=== PATIENT | male | born 1990 | race Caucasian/White ===

== ENCOUNTER 2020-12-20 11:58 | Emergency (ER) | payer SELFPAY ==
[2020-12-20 12:07] VITALS: BP 146/90; PULSE 82; RESP 20; TEMP 37.1; O2SAT 100
[2020-12-20 12:14] VITALS: BP 146/90; PULSE 82; RESP 20; TEMP 37.1; O2SAT 100
--- NOTE | 2020-12-20 12:28 | ED.MALEGU ---
HPI - Male Genitourinary General Chief complaint: Urogenital-Male Stated complaint: FLANK PAIN Time Seen by Provider: 12/20/20 12:28 Source: patient and RN notes reviewed Mode of arrival: ambulatory Limitations: no limitations History of Present Illness HPI Narrative: 30-year-old male presents to the emergency room with complaints of low back pain. Patient states that last Saturday, 8 days ago he went to use the restroom when he got up in the morning and started having low back pain, states the pain was so bad I felt lightheaded and almost passed out. States he went back to bed and had a repeat of that Saturday afternoon when he woke up. Did not seek medical attention at that time. Patient states that he woke up this morning with bilateral lower back pain. No blood in his urine. No groin pain. No abdominal pain. No nausea vomiting or diarrhea. Related Data Allergies Allergy/AdvReac Type Severity Reaction Status Date / Time Penicillins Allergy Intermediate Unverified 11/24/14 16:43 Review of Systems Review of Systems: All systems reviewed & are unremarkable except as noted in HPI and below Constitutional: Constitutional: Reports no additional constitutional complaints, Denies body ache(s), Denies chills and Denies fever(s) Eyes: Eyes: Reports no additional eye complaints ENT: Reports system reviewed and no additional complaints, except as documented Cardiovascular: Cardiovascular: Reports no additional cardiovascular complaints and Denies chest pain Respiratory: Respiratory: Reports no additional respiratory complaints, Reports no additional respiratory complaints, Denies cough, Denies pain on inspiration, Denies pain with cough, Denies dyspnea and Denies wheezing Gastrointestinal: Gastrointestinal: Reports no additional gastrointestinal complaints, Denies abdominal pain and Denies dyspepsia Genitourinary: Genitourinary: Reports no additional male genitourinary complaints, Denies urinary frequency, Denies urinary incontinence and Denies urinary urgency Musculoskeletal: Musculoskeletal: Reports as per HPI, Reports back pain (Lumbar bilateral) and Denies joint swelling Integumentary/Breasts: Skin/Breast: Reports system reviewed and no additional complaints, except as docu Neurologic: Reports system reviewed and no additional complaints, except as documented Psychiatric: Psychiatric: Reports anxiety PMFSH Social History Social History Gender identity (if verbalized by the patient): Male Comments At the time of my signature, I reviewed and agree with the nursing past medical, surgical, social, and family history. There is no relevant family history pertinent to the patient complaint. Exam Const: General: cooperative, healthy appearing, no acute distress, well developed, alert, awake and anxious Nutritional Appearance: obese morbidly obese Orientation/consciousness: patient oriented x3 Limitations: no limitations HENMT: Head: normal to inspection Ears: hearing grossly normal bilaterally General nose exam: Normal external nose present Eyes: General: appearance normal, both eyes and all related structures Neck: Neck: normal visual inspection, full ROM, no lymphadenopathy, no meningeal signs, trachea midline and supple Chest: Chest palpation & inspection: normal inspection of the chest Resp: Effort & Inspection: normal respiratory effort, able to speak in complete sentences and no cough Auscultation: clear to auscultation bilaterally Cardio: Rate: regular rate Rhythm: regular rhythm GI: Inspection: normal to inspection and obesity GI Palp: No abdominal tenderness Back/Spine/Pelvis: Back: no CVA tenderness, No erythema and No back tenderness Cervical Spine: normal cervical lordosis and cervical ROM normal Thoracic/Lumbar Spine: thoracic and lumbar spine normal to inspection and thoraco-lumbar ROM normal Pelvis: no pain with anterior-posterior compression, no pain with late
== END 2020-12-20 12:56 | disposition home or self-care (01) ==
PROVIDERS: Emergency Provider Nurse Practitioner
DX: S39.012A Strain of muscle, fascia and tendon of lower back, initial encounter (principal); X58.XXXA Exposure to other specified factors, initial encounter
CPT/HCPCS: 81003; 99203; G0463

== ENCOUNTER 2020-12-21 11:26 | Emergency (ER) | payer BC, SELFPAY ==
--- NOTE | ~2020-12-21 | CT_ITS ---
EXAMINATION: CT abdomen pelvis wo con DATE: 12/21/2020 17:50 INDICATION: Bilateral flank pain TECHNIQUE: Computed tomography (CT) of the abdomen and pelvis was performed without intravenous contr ast. The dose-length product was 659.86 mGy-cm. Automated exposure control and iterative reconstructi on technique were employed. COMPARISON: None. FINDINGS: Lung bases are unremarkable. Heart size is normal. No significant pleural or pericardial ef fusion. No significant vascular abnormality. There are mildly increased number and size of ileocolic lymph nodes. Small fat-containing umbilical hernia. Nonobstructive bowel gas pattern. Moderate fecal loading of the rectum. The liver, spleen, pancreas, adrenal glands and kidneys are unremarkable. Gallbladder is present. Nor mal appendix. No free air or free fluid. No significant bone or joint abnormality. Mild lumbar spondy losis. No renal/ureteral stones or hydronephrosis. IMPRESSION: 1. No findings to account for patient's symptoms. 2: Mild ileocolic lymphadenopathy, likely reactive. Reviewed, dictated and finalized at location A.
[2020-12-21 11:45] VITALS: BP 139/91; PULSE 64; RESP 18; TEMP 36.3; O2SAT 100
[2020-12-21 12:04] LABS: Basophils Percent Auto 0.4 % (0.2-1.2); Eosinophils Absolute Auto 0.2 K/mm3 (0-0.3); Eosinophils Percent Auto 2.2 % (0-4.4); Hematocrit 49.1 % (42.0-52.0); Hemoglobin 16.2 g/dL (14.0-18.0); Immature Granulocyte Absolute 0.02 K/mm3 (0.00-0.031); Immature Granulocyte Percent A 0.3 % (0-0.5); Lymphocytes Absolute Auto 2.38 K/mm3 (0.9-3.2); Lymphocytes Percent Auto 34.6 % (18.3-44.2); Mean Corpuscular Hemoglobin 29.4 pg (26-34); Mean Corpuscular Volume 89.1 fl (80-100); Mean Platelet Volume 9.8 fl (7.4-10.4); Monocytes Absolute Auto 0.5 K/mm3 (0.1-0.6); Monocytes Percent Auto 7.6 % (2.6-8.5); Neutrophils Absolute Auto 3.8 K/mm3 (1.3-6.7); Neutrophils Percent Auto 54.9 % (45.5-73.1); Platelet Count Result 250 k/mm3 (150-375); Red Blood Count 5.51 M/mm3 (4.6-6.20); Red Cell Distribution Width 13.1 % (11.5-14.5); White Blood Count 6.9 K/mm3 (4.5-10.0)
[2020-12-21 12:13] LABS: Anion Gap 7 mmol/L (8-16); Blood Urea Nitrogen 12 mg/dL (9-20); Calcium 9.6 mg/dL (8.4-10.2); Carbon Dioxide 30 mmol/L (22-30); Chloride 102 mmol/L (98-107); Estimated CRCL calculation 147 ml/min; Estimated Glomerular Filt Rate > 60; Glucose 118 mg/dL (75-110); Potassium 4.1 mmol/L (3.4-5.0); Sodium 139 mmol/L (137-145)
[2020-12-21 12:33] LABS: Add Urine Microscopic? YES; Appearance Urine Clear (Clear); Bilirubin Urine Negative (Negative); Blood Urine Negative (Negative); Color Urine Yellow (Yellow); Glucose Urine UA Negative (Negative); Ketones Urine Negative (Negative); Leukocyte Esterase Ur Negative LEU/UL (Negative); Mucus Urine Heavy /lpf; Nitrate Urine Negative (Negative); Protein Urine 1+ mg/dL (Negative); Specific Grav Ur 1.025 (1.001-1.035); Squamous Epithelial Cell Urine Rare /hpf (Few); Urobilinogen Urine Negative mg/dL (<2.0); WBC Urine 0-3 /hpf
[2020-12-21 18:00] VITALS: BP 140/99; PULSE 73; RESP 16; O2SAT 100
--- NOTE | 2020-12-21 18:19 | ED.ABDPAIN ---
HPI - Abdominal Pain General Chief Complaint: Abdominal Pain Stated Complaint: lower back pain Time Seen by Provider: 12/21/20 16:58 Source: patient Mode of arrival: ambulatory Limitations: no limitations History of Present Illness HPI narrative: 30-year-old male Because he thinks he might have a kidney stone Patient indicates that he has been having pain intermittently for at least a week First began about 8 days ago however seem to be more bilateral than unilateral and more abdominal than back or flank He missed the day of work and symptoms started getting better Couple of days ago the symptoms again worsened and yesterday he was seen at an urgent care He had a clean urinalysis which made kidney stones less likely and was given prescriptions for a muscle relaxer and NSAID which he does not think is helping very much He does not have any pain radiating from his back into his legs to suggest sciatica He has nausea but no vomiting and no diarrhea and no fever He has no dysuria or hematuria Related Data Allergies Allergy/AdvReac Type Severity Reaction Status Date / Time Penicillins Allergy Intermediate Unverified 11/24/14 16:43 Review of Systems Review of Systems: All systems reviewed & are unremarkable except as noted in HPI and below Constitutional: Constitutional: Reports no additional constitutional complaints, Denies chills, Reports fatigue, Denies fever(s) and Denies headache(s) Eyes: Eyes: Reports no additional eye complaints and Denies change in vision ENT: Denies headache(s) and Denies sore throat Cardiovascular: Cardiovascular: Denies chest pain and Denies dyspnea Respiratory: Respiratory: Denies cough and Denies dyspnea Gastrointestinal: Gastrointestinal: Reports abdominal pain, Denies bloating, Denies diarrhea and Denies vomiting Genitourinary: Genitourinary: Denies hematuria, Denies dysuria and Denies urinary frequency Musculoskeletal: Musculoskeletal: Reports back pain, Reports myalgias, Denies deformity, Denies arthralgias, Denies joint swelling and Denies numbness Integumentary/Breasts: Skin/Breast: Denies rash and Denies wounds Neurologic: Denies headache(s), Denies focal weakness, Denies numbness and Reports weakness Psychiatric: Psychiatric: Reports no additional psychiatric complaints Endocrine: Endocrine: Reports no additional endocrine complaints Hematologic/Lymphatic: Hematologic/Lymphatic: Reports no additional hematologic/lymphatic complaints Allergic/Immunologic: Allergic/Immunologic: Reports no additional allergic/immunologic complaints [facility] Social History Social History Gender identity (if verbalized by the patient): Male Exam Const: General: cooperative, no acute distress and alert Orientation/consciousness: patient oriented x3 (alert) Other: Overweight HENMT: Head: normal to inspection, normocephalic and atraumatic Ears: external ears normal General nose exam: no epistaxis Eyes: Conjunctivae: conjunctivae normal EOM: EOMs intact bilaterally Neck: Neck: normal visual inspection, supple and no JVD Resp: Effort & Inspection: normal respiratory effort and not labored Auscultation: clear to auscultation bilaterally and other (BS =) Cardio: Rate: regular rate Rhythm: regular rhythm GI: Inspection: non-distended GI Palp: Yes Soft to palpation, Yes Tenderness to palpation present (GI), No Guarding due to palpation present (GI) and No Rebound tenderness present Other: There is very minimal poorly localized tenderness in the right lower abdomen with very firm palpation no referred tenderness : General: Yes no CVA tenderness Back/Spine/Pelvis: Other: No midline spinal tenderness, no paraspinous tenderness, negative straight leg raise to nearly 90 degrees bilaterally, no SI tenderness, full range of motion in all directions Skin: General skin exam: normal color and no rashes or lesions noted Neuro: General: patient oriented x3 (alert) and moves all extremi
[2020-12-21 19:20] LABS: Lipase 74 U/L (23-300)
[2020-12-21 20:08] VITALS: BP 140/77; PULSE 86; RESP 20; O2SAT 100
== END 2020-12-21 20:11 | disposition home or self-care (01) ==
PROVIDERS: Emergency Medicine; Emergency Provider Emergency Medicine
DX: R10.9 Unspecified abdominal pain (principal)
CPT/HCPCS: 36415; 74176; 80048; 81001; 83690; 85025; 99284

== ENCOUNTER 2020-12-27 16:14 | Emergency (ER) | payer BC, SELFPAY ==
[2020-12-27 16:17] VITALS: BP 157/98; PULSE 80; RESP 18; TEMP 36.6; O2SAT 100
[2020-12-27 16:57] LABS: Add Urine Microscopic? YES; Appearance Urine Cloudy (Clear); Bilirubin Urine Negative (Negative); Blood Urine Negative (Negative); Color Urine Yellow (Yellow); Glucose Urine UA Negative (Negative); Ketones Urine Negative (Negative); Leukocyte Esterase Ur Negative LEU/UL (Negative); Mucus Urine Heavy /lpf; Nitrate Urine Negative (Negative); Protein Urine 1+ mg/dL (Negative); RBC Urine 0-2 /hpf (0-2); Specific Grav Ur 1.026 (1.001-1.035); Squamous Epithelial Cell Urine Rare /hpf (Few); Urobilinogen Urine Negative mg/dL (<2.0); WBC Urine 0-3 /hpf
--- NOTE | 2020-12-27 17:04 | ED.GENADULT ---
HPI - General Adult General Chief complaint: Psychiatric Symptoms Stated complaint: psychiatric eval Time Seen by Provider: 12/27/20 16:29 Source: patient and RN notes reviewed Mode of arrival: ambulatory Limitations: no limitations History of Present Illness HPI narrative: Patient a 30-year-old male who presents to emergency department for evaluation of depression with passive thoughts of harming himself patient notes he has chronically been depressed and was following up with a new primary care doctor after recent ER visit for abdominal pain and during filling out the paperwork he had noted that he had had depression and thoughts of harming himself was referred to emergency department presented per private vehicle in no distress for evaluation of the symptoms patient denies any plan to harm himself or homicidal ideation and on arrival is otherwise in no distress Related Data Allergies Allergy/AdvReac Type Severity Reaction Status Date / Time Penicillins Allergy Intermediate Unknown Verified 12/27/20 17:04 Review of Systems Review of Systems: All systems reviewed & are unremarkable except as noted in HPI and below PMFSH Past Medical History Medical History (Updated 12/27/20 @ 20:31 by Raz Nails PA-C) Depression Social History Social History Substance use type: does not use Gender identity (if verbalized by the patient): Male Exam Narrative: Exam Narrative: GENERAL: Well-appearing, well-nourished, and in no acute distress. HEAD: Normocephalic, atraumatic. EYES: PERRLA and EOMI. ENT: Nares clear, no rhinorrhea or epistaxis. Mucous membranes moist. CHEST: Clear to auscultation. No respiratory distress. No wheezes rales or rhonchi HEART: Regular rate and rhythm. No murmur heard. EXTREMITIES: Normal range of motion. No edema. SKIN: Warm, dry, no rash. NEURO: No focal deficits. Alert and oriented x3. Cranial nerves II through XII grossly intact PSYCH: Normal mood and affect. Course Course Emergency Course: Patient evaluated by myself and crisis he has been given resources and felt appropriate for outpatient treatment currently is in a day program with [facility]. Patient agrees with this plan will be discharged home no high risk changes in the evaluation ABCs vital signs intact and stable Vital Signs Vital signs: Vital Signs Temperature 97.8 F 12/27/20 16:17 Pulse Rate 80 12/27/20 16:17 Respiratory Rate 18 12/27/20 16:17 Blood Pressure 157/98 H 12/27/20 16:17 Pulse Oximetry 100 12/27/20 16:17 Temperature 97.8 F 12/27/20 16:17 Pulse Rate 80 12/27/20 16:17 Respiratory Rate 18 12/27/20 16:17 Blood Pressure 157/98 H 12/27/20 16:17 Pulse Oximetry 100 12/27/20 16:17 Medical Decision Making MDM Narrative Medical decision making narrative: Patient presented for evaluation of depression felt appropriate for outpatient reevaluation will be discharged home with plan follow-up on an outpatient basis evaluated by myself and crisis and felt appropriate for outpatient therapy patient agrees with this plan Vital Signs Vital Signs: Vital Signs Temperature 97.8 F 12/27/20 16:17 Pulse Rate 80 12/27/20 16:17 Respiratory Rate 18 12/27/20 16:17 Blood Pressure 157/98 H 12/27/20 16:17 Pulse Oximetry 100 12/27/20 16:17 Temperature 97.8 F 12/27/20 16:17 Pulse Rate 80 12/27/20 16:17 Respiratory Rate 18 12/27/20 16:17 Blood Pressure 157/98 H 12/27/20 16:17 Pulse Oximetry 100 12/27/20 16:17 Lab Data Result diagrams: 12/27/20 17:03 12/27/20 17:03 Labs: Lab Results 12/27/20 12/27/20 12/27/20 Range/Units 16:44 16:44 17:03 WBC 8.3 (4.5-10.0) K/mm3 RBC 5.55 (4.6-6.20) M/mm3 Hgb 16.2 (14.0-18.0) g/dL Hct 48.5 (42.0-52.0) % MCV 87.4 (80-100) fl MCH 29.2 (26-34) pg MCHC 33.4 (32-36) g/dl RDW 13.1 (11.5-14.5) % Plt Count 30
[2020-12-27 17:07] LABS: Amphetamine Screen Urine Negative (Negative); Barbiturate Screen Urine Negative (Negative); Benzodiazepines Screen Urine Negative (Negative); Cannabinoid Screen Urine Negative (Negative); Cocaine Screen Urine Negative (Negative); Methadone Screen Urine Negative (Negative); Opiate Screen Urine Negative (Negative); Phencyclidine Screen Urine Negative (Negative)
[2020-12-27 17:11] LABS: Basophils Percent Auto 0.5 % (0.2-1.2); Eosinophils Absolute Auto 0.1 K/mm3 (0-0.3); Eosinophils Percent Auto 1.1 % (0-4.4); Hematocrit 48.5 % (42.0-52.0); Hemoglobin 16.2 g/dL (14.0-18.0); Immature Granulocyte Absolute 0.06 K/mm3 (0.00-0.031); Immature Granulocyte Percent A 0.7 % (0-0.5); Lymphocytes Absolute Auto 2.71 K/mm3 (0.9-3.2); Lymphocytes Percent Auto 32.7 % (18.3-44.2); Mean Corpuscular HGB Conc 33.4 g/dl (32-36); Mean Corpuscular Hemoglobin 29.2 pg (26-34); Mean Corpuscular Volume 87.4 fl (80-100); Mean Platelet Volume 9.7 fl (7.4-10.4); Monocytes Absolute Auto 0.6 K/mm3 (0.1-0.6); Monocytes Percent Auto 7.7 % (2.6-8.5); Neutrophils Absolute Auto 4.7 K/mm3 (1.3-6.7); Neutrophils Percent Auto 57.3 % (45.5-73.1); Platelet Count Result 306 k/mm3 (150-375); Red Blood Count 5.55 M/mm3 (4.6-6.20); Red Cell Distribution Width 13.1 % (11.5-14.5); White Blood Count 8.3 K/mm3 (4.5-10.0)
[2020-12-27 17:23] LABS: Alanine Aminotransferase 31 U/L (4-50); Albumin Level 4.4 g/dL (3.5-5.1); Alkaline Phosphatase 77 U/L (38-126); Anion Gap 9 mmol/L (8-16); Aspartate Amino Transferase 34 U/L (17-59); Bilirubin,Total 0.3 mg/dL (0.2-1.3); Blood Urea Nitrogen 15 mg/dL (9-20); Calcium 9.9 mg/dL (8.4-10.2); Carbon Dioxide 29 mmol/L (22-30); Chloride 102 mmol/L (98-107); Estimated CRCL calculation 148 ml/min; Estimated Glomerular Filt Rate > 60; Glucose 93 mg/dL (75-110); Potassium 4.5 mmol/L (3.4-5.0); Sodium 140 mmol/L (137-145)
[2020-12-27 17:25] LABS: Ethanol < 10 mg/dL (<10)
--- NOTE | 2020-12-27 20:00 | PC.NURSE ---
EDP notified of pt low O2 saturation. Pt placed on 2L NC at this time.
[2020-12-27 21:39] VITALS: BP 124/91; PULSE 73; RESP 18; TEMP 36.6; O2SAT 100
== END 2020-12-27 21:40 | disposition home or self-care (01) ==
PROVIDERS: Emergency Provider Emergency Medicine; PCP Emergency Medicine
DX: F32.9 Major depressive disorder, single episode, unspecified (principal)
CPT/HCPCS: 36415; 80053; 80307; 81001; 84443; 85025; 99284

== ENCOUNTER 2021-12-12 11:36 | Emergency (ER) | payer SELFPAY ==
[2021-12-12 11:41] VITALS: BP 128/94; PULSE 71; RESP 16; TEMP 36.1; O2SAT 100
[2021-12-12 11:45] VITALS: BP 128/94; PULSE 71; RESP 16; TEMP 36.1; O2SAT 100
--- NOTE | 2021-12-12 11:45 | ED.GENADULT ---
HPI - General Adult General Chief complaint: Unspecified Stated complaint: LIGHT HEADED Time Seen by Provider: 12/12/21 11:45 Source: patient and RN notes reviewed History of Present Illness HPI narrative: Patient is a 31-year-old male who presents the urgent care with complaints of lightheadedness. Patient states that he felt like he was going to pass out at work and they called the ambulance. Patient states the EMT it did a EKG and blood sugar level which was both normal. Patient denies of any nausea, vomiting or lightheadedness at this time. Patient states he needs to be released back to work . Patient states that he did not get enough sleep last night, drink an energy drink, and went to work on an empty stomach. 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 No other acute complaints. No stress noted. Patient the plan of care. Some parts of this dictation were generated by voice recognition software and may contain typographical and/or grammatical inaccuracies. Related Data Home Medications Medication Instructions Recorded Confirmed hydroxyzine pamoate 12/12/21 sertraline mg 12/12/21 Allergies Allergy/AdvReac Type Severity Reaction Status Date / Time Penicillins Allergy Intermediate Unknown Verified 12/27/20 17:04 Review of Systems Review of Systems: CONSTITUTIONAL: Denies fever, chills, or sweats. EYES: Denies visual changes, redness, or discharge. ENT: Denies rhinorrhea, congestion, sore throat, or otalgia. CARDIOVASCULAR: Denies chest pain, palpitations, or edema. RESPIRATORY: Denies cough or dyspnea. GASTROINTESTINAL: Denies abdominal pain, nausea, vomiting, or diarrhea. GENITOURINARY: Denies dysuria or hematuria. SKIN: Denies rash or itching. MUSCULOSKELETAL: Denies back pain, joint pain, or myalgia. NEUROLOGIC: Denies headache, numbness, or weakness. All other systems reviewed are negative, except as documented in HPI. [facility] Past Medical History Medical History (Updated 12/12/21 @ 11:48 by EDWIGE Broussard) Depression Social History Social History Substance use type: does not use Gender identity (if verbalized by the patient): Male Comments At the time of my signature, I reviewed and agree with the nursing past medical, surgical, social, and family history. There is no relevant family history pertinent to the patient complaint. Exam Narrative: GENERAL: This is a well-nourished, well-developed patient, in no apparent distress. HEAD: normocephalic, atraumatic. EYES: PERRL. Sclera clear/white. Vision is grossly intact. EARS: External ears normal, auditory canals clear and without drainage, TMs normal without perforation. Hearing grossly intact. NOSE: External nose normal with no obvious nasal discharge, nares without redness, no rhinorrhea. THROAT: Mucous membranes moist, posterior pharynx clear. NECK: Neck supple, non-tender without lymphadenopathy, masses or thyromegaly. CARDIOVASCULAR: Regular rate and rhythm without murmurs, gallops, or rubs. RESPIRATORY: Clear to auscultation. Breath sounds equal bilaterally. No wheezes, rales, or rhonchi. SKIN: warm, intact with no suspicious lesions or rash, good texture and turgor. NEURO: awake, alert, and oriented to person, place and time. There were no obvious focal neurologic abnormalities. EXTREMITIES: No clubbing, cyanosis, or edema. Course Course Level of Care: Express Care Visit Vital Signs Vital signs: Vital Signs Temperature 96.9 F L 12/12/21 11:41 Pulse Rate 71 12/12/21 11:41 Respiratory Rate 16 12/12/21 11:41 Blood Pressure 128/94 H 12/12/21 11:41 Pulse Oximetry 100 12/12/21 11:41 Temperature 96.9 F L 12/12/21 11:45 Pulse Rate 71 12/12/21 11:45 Respiratory Rate 16 12/12/21 11:45 Blood Pressure 128/94 H 12/12/21 11:45 Pulse Oximetry 100 12/12/21 11:45 Reviewed-mine
== END 2021-12-12 11:56 | disposition home or self-care (01) ==
PROVIDERS: Emergency Provider Nurse Practitioner Family
DX: R42 Dizziness and giddiness (principal); F32.A Depression, unspecified
CPT/HCPCS: 99211; G0463

== ENCOUNTER 2022-07-18 06:51 | Emergency (ER) | payer SELFPAY ==
--- NOTE | ~2022-07-18 | XR_ITS ---
EXAMINATION: XR chest 2V DATE: 07/18/2022 08:37 INDICATION: Cough and congestion TECHNIQUE: PA and lateral views of the chest were obtained. COMPARISON: None FINDINGS: The lungs are clear with no focal airspace opacities, pulmonary edema, pleural effusion or pneumothor ax. The cardiomediastinal silhouette is normal. Visualized bones and soft tissues are unremarkable. IMPRESSION: 1. No acute cardiopulmonary disease. Reviewed, dictated and finalized at location A. [facility]
[2022-07-18 07:03] VITALS: BP 136/97; PULSE 73; RESP 16; TEMP 36.7; O2SAT 100
--- NOTE | 2022-07-18 07:43 | ECG_ITS ---
Measurements Intervals [place] Rate: 68 P: 20 DC: 149 QRS: 39 QRSD: 109 T: 41 QT: 376 QTc: 402 Interpretive Statements SINUS RHYTHM WITH SINUS ARRHYTHMIA INCOMPLETE RIGHT BUNDLE BRANCH BLOCK NO PREVIOUS ECG AVAILABLE FOR COMPARISON Electronically Signed On 07-18-2022 17:56:48 [employer]ATING [employer] MOVING ESTIMATOR by Joe Everett M.D.
--- NOTE | 2022-07-18 07:51 | ED.NAVMDI ---
HPI - Nausea/Vomiting/Diarrhea General Chief complaint: Nausea/Vomiting/Diarrhea Stated complaint: URI Time Seen by Provider: 07/18/22 07:38 History of Present Illness HPI Narrative: Pt presents with numerous complaints. Pt felt light headed a couple of days ago at work and nearly passed out. Pt has felt nauseated intermittently and vomited once today. Pt denies abdominal pain or diarrhea. Pt had URI last week and put on antibiotics and that improved but overall just doesn't feel well. Related Data Home Medications Medication Instructions Recorded Confirmed hydroxyzine pamoate 25 mg capsule 12/12/21 sertraline 50 mg tablet mg 12/12/21 Allergies Allergy/AdvReac Type Severity Reaction Status Date / Time Penicillins Allergy Intermediate Unknown Verified 07/18/22 06:52 Review of Systems Review of Systems: All systems reviewed & are unremarkable except as noted in HPI and below PMFSH Past Medical History Medical History (Updated 07/18/22 @ 10:30 by Sandra Pierce III, DO) Depression Social History Social History Substance use type: does not use Gender identity (if verbalized by the patient): Male Exam Const: General: healthy appearing and no acute distress Nutritional Appearance: well nourished Orientation/consciousness: patient oriented x3 Limitations: no limitations HENMT: Head: normal to inspection Mouth: Yes Normal oral and palatal mucosa present Eyes: Conjunctivae: conjunctivae normal Pupils: Equal, round and reactive pupils present EOM: EOMs intact bilaterally Neck: Neck: normal visual inspection and no lymphadenopathy Resp: Effort & Inspection: normal respiratory effort Auscultation: clear to auscultation bilaterally Cardio: Rate: regular rate GI: GI Palp: Yes Soft to palpation Auscultation: normal bowel sounds Skin: General skin exam: normal color Rashes: no rashes Wounds: no wounds Neuro: General: patient oriented x3 and moves all extremities Cranial nerves: Yes Nystagmus not present Speech: normal speech Extrem: General: normal to inspection Psych: Mental Status: mental status grossly normal Affect: normal affect Attitude: cooperative Course Vital Signs Vital signs: Vital Signs Temperature 98.1 F 07/18/22 07:03 Pulse Rate 73 07/18/22 07:03 Respiratory Rate 16 07/18/22 07:03 Blood Pressure 136/97 H 07/18/22 07:03 Pulse Oximetry 100 07/18/22 07:03 Oxygen Delivery Room Air 07/18/22 07:03 Temperature 98.1 F 07/18/22 07:03 Pulse Rate 73 07/18/22 07:03 Respiratory Rate 16 07/18/22 10:40 Blood Pressure 136/97 H 07/18/22 07:03 Pulse Oximetry 100 07/18/22 07:03 Oxygen Delivery Room Air 07/18/22 07:03 MDM - Nausea/Vomiting/Diarrhea Differential Diagnosis Differential diagnosis: Likely food poisoning, gastroenteritis and other (anxiety) Medical Records Attestation: I reviewed the patient's medical records. Lab Data 07/18/22 08:54 07/18/22 08:54 Labs: Lab Results 07/18/22 07/18/22 Range/Units 08:54 08:54 WBC 7.2 (4.5-10.0) K/mm3 RBC 4.89 (4.6-6.20) M/mm3 Hgb 14.6 (14.0-18.0) g/dL Hct 43.8 (42.0-52.0) % MCV 89.6 (80-100) fl MCH 29.9 (26-34) pg MCHC 33.3 (32-36) g/dl RDW 12.9 (11.5-14.5) % Plt Count 274 (150-375) k/mm3 MPV 9.8 (7.4-10.4) fl Immature Gran % (Auto) 0.3 (0-0.5) % Neut % (Auto) 41.9 L (45.5-73.1) % Lymph % (Auto) 47.2 H (18.3-44.2) % [place] % (Auto) 7.8 (2.6-8.5) % Eos % (Auto) 2.2 (0-4.4) % Baso % (Auto) 0.6 (0.2-1.2) % Lymph # (Auto) 3.41 H (0.9-3.2) K/mm3 [place] # (Auto) 0.6 (0.1-0.6) K/mm3 Eos # (Auto) 0.2 (0-0.3) K/mm3 Baso # (Auto) 0.0 (0.0-0.1) K/mm3 Abs Immat Gran (auto) 0.02 (0.00-0.031) K/mm3 Absolute Neuts (auto) 3.0 (1.3-6.7) K/mm3 Absolute Nucleated RBC 0.0 (0.0-0.012) K/mm3 Nucleated RBC % 0.0 (0.0-0.2)
[2022-07-18] MEDS: SODIUM CHLORIDE 0.9% IV 1,000 ML 999 ML IV CONT (08:40)
[2022-07-18] MEDS: ONDANSETRON INJ 4 MG/2 ML VIAL IV PUSH (08:40)
[2022-07-18 09:04] LABS: Basophils Percent Auto 0.6 % (0.2-1.2); Eosinophils Absolute Auto 0.2 K/mm3 (0-0.3); Eosinophils Percent Auto 2.2 % (0-4.4); Hematocrit 43.8 % (42.0-52.0); Hemoglobin 14.6 g/dL (14.0-18.0); Immature Granulocyte Absolute 0.02 K/mm3 (0.00-0.031); Immature Granulocyte Percent A 0.3 % (0-0.5); Lymphocytes Absolute Auto 3.41 K/mm3 (0.9-3.2); Lymphocytes Percent Auto 47.2 % (18.3-44.2); Mean Corpuscular HGB Conc 33.3 g/dl (32-36); Mean Corpuscular Hemoglobin 29.9 pg (26-34); Mean Corpuscular Volume 89.6 fl (80-100); Mean Platelet Volume 9.8 fl (7.4-10.4); Monocytes Absolute Auto 0.6 K/mm3 (0.1-0.6); Monocytes Percent Auto 7.8 % (2.6-8.5); Neutrophils Percent Auto 41.9 % (45.5-73.1); Platelet Count Result 274 k/mm3 (150-375); Red Blood Count 4.89 M/mm3 (4.6-6.20); Red Cell Distribution Width 12.9 % (11.5-14.5); White Blood Count 7.2 K/mm3 (4.5-10.0)
[2022-07-18 09:20] LABS: Alanine Aminotransferase 42 U/L (6-50); Albumin Level 4.6 g/dL (3.5-5.1); Alkaline Phosphatase 82 U/L (38-126); Anion Gap 5 mmol/L (8-16); Aspartate Amino Transferase 39 U/L (17-59); Bilirubin,Total 0.5 mg/dL (0.2-1.3); Blood Urea Nitrogen 18 mg/dL (9-20); Calcium 8.9 mg/dL (8.4-10.2); Carbon Dioxide 30 mmol/L (22-30); Chloride 103 mmol/L (98-107); Estimated CRCL calculation 154 ml/min; Estimated Glomerular Filt Rate > 60; Glucose 102 mg/dL (65-110); Potassium 3.9 mmol/L (3.4-5.0); Sodium 138 mmol/L (137-145)
[2022-07-18 10:40] VITALS: RESP 16
== END 2022-07-18 10:40 | disposition home or self-care (01) ==
PROVIDERS: Emergency Provider Emergency Medicine
DX: B34.9 Viral infection, unspecified (principal); F32.A Depression, unspecified; I45.10 Unspecified right bundle-branch block
CPT/HCPCS: 36415; 71046; 80053; 85025; 93005; 96361; 96374; 99284; J2405; J7030

== ENCOUNTER 2023-09-22 15:31 | Emergency (ER) | payer BC, SELFPAY ==
[2023-09-22 15:34] VITALS: BP 149/89; PULSE 98; RESP 16; TEMP 36.4; O2SAT 98
[2023-09-22 16:19] LABS: Basophils Percent Auto 0.5 % (0.2-1.2); Eosinophils Absolute Auto 0.1 K/mm3 (0-0.3); Eosinophils Percent Auto 1.2 % (0-4.4); Hematocrit 47.4 % (42.0-52.0); Hemoglobin 16.2 g/dL (14.0-18.0); Immature Granulocyte Absolute 0.04 K/mm3 (0.00-0.031); Immature Granulocyte Percent A 0.5 % (0-0.5); Lymphocytes Absolute Auto 3.11 K/mm3 (0.9-3.2); Lymphocytes Percent Auto 35.1 % (18.3-44.2); Mean Corpuscular HGB Conc 34.2 g/dl (32-36); Mean Corpuscular Hemoglobin 29.5 pg (26-34); Mean Corpuscular Volume 86.2 fl (80-100); Mean Platelet Volume 10.3 fl (7.4-10.4); Monocytes Absolute Auto 0.6 K/mm3 (0.1-0.6); Monocytes Percent Auto 6.8 % (2.6-8.5); Neutrophils Percent Auto 55.9 % (45.5-73.1); Platelet Count Result 320 k/mm3 (150-375); Red Cell Distribution Width 12.7 % (11.5-14.5); White Blood Count 8.9 K/mm3 (4.5-10.0)
[2023-09-22 16:36] LABS: Acetaminophen < 10 ug/mL (10-30); Salicylate < 1.0 mg/dL (2-20)
[2023-09-22 16:37] LABS: Alanine Aminotransferase 40 U/L (6-50); Albumin Level 4.6 g/dL (3.5-5.1); Alkaline Phosphatase 92 U/L (38-126); Anion Gap 8 mmol/L (8-16); Aspartate Amino Transferase 31 U/L (17-59); Bilirubin,Total 0.5 mg/dL (0.2-1.3); Blood Urea Nitrogen 17 mg/dL (9-20); Calcium 9.8 mg/dL (8.4-10.2); Carbon Dioxide 27 mmol/L (22-30); Chloride 103 mmol/L (98-107); Estimated CRCL calculation 136 ml/min; Estimated Glomerular Filt Rate > 60; Glucose 132 mg/dL (65-110); Potassium 3.6 mmol/L (3.4-5.0); Sodium 138 mmol/L (137-145)
[2023-09-22 16:38] LABS: Ethanol < 10 mg/dL (<10)
[2023-09-22 16:50] LABS: Amphetamine Screen Urine Negative (Negative); Barbiturate Screen Urine Negative (Negative); Benzodiazepines Screen Urine Negative (Negative); Cannabinoid Screen Urine Negative (Negative); Cocaine Screen Urine Negative (Negative); Methadone Screen Urine Negative (Negative); Opiate Screen Urine Negative (Negative); Phencyclidine Screen Urine Negative (Negative)
[2023-09-22 16:54] LABS: Appearance Urine Clear (Clear); Bacteria Urine None Seen /hpf; Bilirubin Urine Negative (Negative); Blood Urine Negative (Negative); Color Urine Dark Yellow (Yellow); Glucose Urine UA Negative (Negative); Ketones Urine Trace mg/dL (Negative); Leukocyte Esterase Ur Negative LEU/UL (Negative); Mucus Urine Present /lpf; Need Manual Microscopic Reviewed; Nitrate Urine Negative (Negative); Protein Urine Trace mg/dL (Negative); RBC Urine 0-2 /hpf (0-2); Specific Grav Ur 1.033 (1.001-1.035); Squamous Epithelial Cell Urine None seen /hpf (Few); Urobilinogen Urine 0.2 mg/dL (<2.0); WBC Urine 0-5 /hpf; pH Urine 5.5 (5.0-9.0)
[2023-09-22 16:55] LABS: Influenza A QL RT-PCR Negative (Negative); Influenza B QL RT-PCR Negative (Negative); RSV RNA, RT-PCR Negative (Negative); SARS-CoV-2 RNA PCR Negative (Negative)
[2023-09-22 16:56] LABS: Add Urine Microscopic? YES
--- NOTE | 2023-09-22 17:32 | ED.PSYCH ---
HPI - Psych General Chief Complaint: Psychiatric Symptoms Stated Complaint: anx- dep Time Seen by Provider: 09/22/23 17:02 History of Present Illness HPI Narrative: 33-year-old male with history of autism, depression and anxiety reports for evaluation for suicidal ideation. Patient states he has felt suicidal intermittently since 2007. States he has been feeling suicidal for the past few weeks, worsening over the past week. Pt states he has had passive thoughts of suicide for years including driving in front of a freight train and cutting his wrists. Denies intent. States today he was telling his friend he felt suicidal who called the making machine operator. The patient was transferred here via EMS. He denies HI. He is to see a psychiatrist approximately a year and half ago who no longer contacted the patient back. He has been out of his medications for your half. He is unsure what these medications were. He denies drug use, alcohol use, history of inpatient psychiatric care. States he lives in an apartment with his roommate. Related Data Allergies Allergy/AdvReac Type Severity Reaction Status Date / Time Penicillins Allergy Intermediate Unknown Verified 09/22/23 15:41 Review of Systems Review of Systems: CONSTITUTIONAL: Denies fever, chills, or sweats. EYES: Denies visual changes, redness, or discharge. ENT: Denies rhinorrhea, congestion, sore throat, or otalgia. CARDIOVASCULAR: Denies chest pain, palpitations, or edema. RESPIRATORY: Denies cough or dyspnea. GASTROINTESTINAL: Denies abdominal pain, nausea, vomiting, or diarrhea. GENITOURINARY: Denies dysuria or hematuria. SKIN: Denies rash or itching. MUSCULOSKELETAL: Denies back pain, joint pain, or myalgia. NEUROLOGIC: Denies headache, numbness, or weakness. PSYCHIATRIC: See HPI PMFSH Past Medical History Medical History Depression Social History Social History Substance use type: does not use Gender identity (if verbalized by the patient): Male Exam Narrative: GENERAL: Well-appearing, well-nourished, and in no acute distress. HEAD: Normocephalic, atraumatic. EYES: PERRLA and EOMI. ENT: Nares clear, no rhinorrhea or epistaxis. Mucous membranes moist. NECK: Supple. CHEST: Clear to auscultation. No respiratory distress. HEART: Regular rate and rhythm. No murmur heard. Normal peripheral pulses. ABDOMEN: Soft, nontender, nondistended, normal active bowel sounds. EXTREMITIES: Normal range of motion. No edema. SKIN: Warm, dry, no rash. NEURO: No focal deficits. Alert and oriented x3 PSYCH: Tearful, not making eye contact. Depressed. Suicidal ideation with a plan. Denies HI. No active delusions or hallucinations on exam. Seems to have fair insight. Course Vital Signs Vital signs: Vital Signs Temperature 97.6 F 09/22/23 15:34 Pulse Rate 98 09/22/23 15:34 Respiratory Rate 16 09/22/23 15:34 Blood Pressure 149/89 H 09/22/23 15:34 Pulse Oximetry 98 09/22/23 15:34 Temperature 97.6 F 09/22/23 15:34 Pulse Rate 98 09/22/23 15:34 Respiratory Rate 16 09/22/23 15:34 Blood Pressure 149/89 H 09/22/23 15:34 Pulse Oximetry 98 09/22/23 15:34 MDM - Psych MDM Narrative Medical decision making narrative: 33-year-old male with history of anxiety and depression presents to the ED via EMS SI, depression and anxiety. See HPI for further history vitals stable. Exam significant for the above. Psychiatric workup obtained which is unremarkable. UDS and alcohol are negative. COVID and flu are negative. Patient is medically cleared for crisis consult. Crisis at bedside. Patient evaluated he feels patient be discharged home with safety plan and close follow-up. Patient feels safe with this. Will discharge home with psychiatric follow-up. He also the PCP and elbow encouraged follow-up with. ED return precautions discussed. He is
== END 2023-09-22 20:03 | disposition home or self-care (01) ==
PROVIDERS: Emergency Medicine; Emergency Provider Physician Assistant
DX: F32.A Depression, unspecified (principal); Z11.52 Encounter for screening for COVID-19; F84.0 Autistic disorder; F41.9 Anxiety disorder, unspecified
CPT/HCPCS: 36415; 80053; 80307; 81001; 84443; 85025; 87637; 99284

== ENCOUNTER 2023-10-11 05:40 | Emergency (ER) | payer BC, SELFPAY ==
[2023-10-11 05:35] VITALS: BP 156/90; PULSE 78; RESP 18; TEMP 36.8; O2SAT 99
--- NOTE | 2023-10-11 06:14 | PC.NURSE ---
Provider at bedside
--- NOTE | 2023-10-11 06:18 | PC.NURSE ---
Per provider, patient is low risk and does not need suicide precautions.
[2023-10-11 06:56] LABS: Basophils Absolute Auto 0.1 K/mm3 (0.0-0.1); Basophils Percent Auto 0.5 % (0.2-1.2); Eosinophils Absolute Auto 0.1 K/mm3 (0-0.3); Eosinophils Percent Auto 1.4 % (0-4.4); Hematocrit 48.9 % (42.0-52.0); Hemoglobin 16.5 g/dL (14.0-18.0); Immature Granulocyte Absolute 0.04 K/mm3 (0.00-0.031); Immature Granulocyte Percent A 0.4 % (0-0.5); Lymphocytes Absolute Auto 3.76 K/mm3 (0.9-3.2); Lymphocytes Percent Auto 36.8 % (18.3-44.2); Mean Corpuscular HGB Conc 33.7 g/dl (32-36); Mean Corpuscular Hemoglobin 29.8 pg (26-34); Mean Corpuscular Volume 88.4 fl (80-100); Mean Platelet Volume 10.6 fl (7.4-10.4); Monocytes Absolute Auto 0.7 K/mm3 (0.1-0.6); Monocytes Percent Auto 7.1 % (2.6-8.5); Neutrophils Absolute Auto 5.5 K/mm3 (1.3-6.7); Neutrophils Percent Auto 53.8 % (45.5-73.1); Platelet Count Result 277 k/mm3 (150-375); Red Blood Count 5.53 M/mm3 (4.6-6.20); Red Cell Distribution Width 13.2 % (11.5-14.5); White Blood Count 10.2 K/mm3 (4.5-10.0)
--- NOTE | 2023-10-11 06:59 | ED.GENADULT ---
HPI - General Adult General Chief complaint: Anxiety Stated complaint: psych eval Time Seen by Provider: 10/11/23 06:19 History of Present Illness HPI narrative: A 33-year-old male who have anxiety and depression presenting for psych eval. 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 The patient denies SI or HI but is looking for someone to speak to. He has recently been started on SSRIs and is feeling like he has increased energy but is still feeling depressed. Patient denies use of drugs or alcohol. He states compliance with medication regimen. No other physical complaints at this time. Related Data Allergies Allergy/AdvReac Type Severity Reaction Status Date / Time Penicillins Allergy Intermediate Unknown Verified 09/22/23 15:41 [facility] Past Medical History Medical History Depression Social History Social History Substance use type: does not use Gender identity (if verbalized by the patient): Male Exam Narrative: APPEARANCE: No apparent distress. Head: atraumatic. EYES: EOMI, NOSE: Atraumatic NECK: Trachea midline RESPIRATORY: No increased rate of breathing CARDIOVASCULAR: RRR, ABDOMINAL: Non-distended MUSCULOSKELETAl: No obvious deformities NEURO: Alert. Moving 4/4 extremities SKIN:: Warm, dry. Normal color PSYCHIATRIC: Normal affect Course Vital Signs Vital signs: Vital Signs Temperature 98.3 F 10/11/23 05:35 Pulse Rate 78 10/11/23 05:35 Respiratory Rate 18 10/11/23 05:35 Blood Pressure 156/90 H 10/11/23 05:35 Pulse Oximetry 99 10/11/23 05:35 Oxygen Delivery Room Air 10/11/23 05:35 Temperature 98.3 F 10/11/23 10:30 Pulse Rate 81 10/11/23 10:30 Respiratory Rate 16 10/11/23 10:30 Blood Pressure 149/101 H 10/11/23 10:30 Pulse Oximetry 100 10/11/23 10:30 Oxygen Delivery Room Air 10/11/23 05:35 Medical Decision Making MDM Narrative Medical decision making narrative: -Course: 33-year-old male presenting for anxiety and depression. Screening lab work ordered. patient is medically cleared for crisis evaluation.[facility] was [facility] and evaluated the patient deemed him safe for discharge. He was given resources for counseling and mental health. Patient discharged -DDX includes but is not limited to: anxiety, depression -Co-morbidities complicating care: anxiety depression -Social determinants of health: works at [employer] -Discussion of Management/Consultants:[facility]. -Shared decision making / Disposition:Expect discharge. Vital Signs Vital Signs: Vital Signs Temperature 98.3 F 10/11/23 05:35 Pulse Rate 78 10/11/23 05:35 Respiratory Rate 18 10/11/23 05:35 Blood Pressure 156/90 H 10/11/23 05:35 Pulse Oximetry 99 10/11/23 05:35 Oxygen Delivery Room Air 10/11/23 05:35 Temperature 98.3 F 10/11/23 10:30 Pulse Rate 81 10/11/23 10:30 Respiratory Rate 16 10/11/23 10:30 Blood Pressure 149/101 H 10/11/23 10:30 Pulse Oximetry 100 10/11/23 10:30 Oxygen Delivery Room Air 10/11/23 05:35 Lab Data 10/11/23 06:37 10/11/23 06:37 Labs: Lab Results 10/11/23 10/11/23 10/11/23 Range/Units 06:37 06:38 07:28 WBC 10.2 H (4.5-10.0) K/mm3 RBC 5.53 (4.6-6.20) M/mm3 Hgb 16.5 (14.0-18.0) g/dL Hct 48.9 (42.0-52.0) % MCV 88.4 (80-100) fl MCH 29.8 (26-34) pg MCHC 33.7 (32-36) g/dl RDW 13.2 (11.5-14.5) % Plt Count 277 (150-375) k/mm3 MPV 10.6 H (7.4-10.4) fl Immature Gran % (Auto) 0.4 (0-0.5) % Neut % (Auto) 53.8 (45.5-73.1) % Lymph % (Auto) 36.8 (18.3-44.2) % [place] % (Auto) 7.1 (2.6-8.5) % Eos % (Auto) 1.4 (0-4.4) % Baso % (Auto) 0.5 (0.2-1.2) % Lymph # (Auto) 3.76 H (0.9-3.2) K/m
[2023-10-11 07:02] LABS: Appearance Urine Clear (Clear); Bacteria Urine None Seen /hpf; Bilirubin Urine Negative (Negative); Blood Urine Negative (Negative); Color Urine Yellow (Yellow); Glucose Urine UA Negative (Negative); Ketones Urine Trace mg/dL (Negative); Leukocyte Esterase Ur Negative LEU/UL (Negative); Nitrate Urine Negative (Negative); Non Pathogenic Casts 0-2; Protein Urine Trace mg/dL (Negative); RBC Urine 0-2 /hpf (0-2); Squamous Epithelial Cell Urine None Seen /hpf (Few); WBC Urine 0-5 /hpf (0-3); pH Urine 5.5 (5.0-9.0)
[2023-10-11 07:10] LABS: Specific Grav Ur 1.034 (1.001-1.035)
[2023-10-11 07:14] LABS: Alanine Aminotransferase 44 U/L (6-50); Albumin Level 4.6 g/dL (3.5-5.1); Alkaline Phosphatase 90 U/L (38-126); Anion Gap 9 mmol/L (8-16); Aspartate Amino Transferase 32 U/L (17-59); Bilirubin,Total 0.5 mg/dL (0.2-1.3); Blood Urea Nitrogen 19 mg/dL (9-20); Calcium 9.4 mg/dL (8.4-10.2); Carbon Dioxide 26 mmol/L (22-30); Chloride 104 mmol/L (98-107); Estimated CRCL calculation 138 ml/min; Estimated Glomerular Filt Rate > 60; Glucose 108 mg/dL (65-110); Potassium 3.9 mmol/L (3.4-5.0); Sodium 139 mmol/L (137-145)
[2023-10-11 07:14] LABS: Add Urine Microscopic? YES
[2023-10-11 07:30] LABS: Amphetamine Screen Urine Negative (Negative); Barbiturate Screen Urine Negative (Negative); Benzodiazepines Screen Urine Negative (Negative); Cannabinoid Screen Urine Negative (Negative); Cocaine Screen Urine Negative (Negative); Methadone Screen Urine Negative (Negative); Opiate Screen Urine Negative (Negative); Phencyclidine Screen Urine Negative (Negative)
[2023-10-11 07:49] LABS: Ethanol < 10 mg/dL (<10)
[2023-10-11 08:18] LABS: SARS-CoV-2 RNA PCR Negative (Negative)
[2023-10-11 10:30] VITALS: BP 149/101; PULSE 81; RESP 16; TEMP 36.8; O2SAT 100
== END 2023-10-11 10:31 | disposition home or self-care (01) ==
PROVIDERS: Emergency Provider Emergency Medicine
DX: F32.A Depression, unspecified (principal); F41.9 Anxiety disorder, unspecified; Z11.52 Encounter for screening for COVID-19
CPT/HCPCS: 36415; 80053; 80307; 84443; 85025; 87635; 99284

== ENCOUNTER 2024-01-13 23:57 | Emergency (ER) | payer BC, SELFPAY ==
--- NOTE | ~2024-01-13 | XR_ITS ---
EXAMINATION: XR knee RT 3V DATE: 01/14/2024 02:24 INDICATION: Right knee pain and weakness. TECHNIQUE: 3 views of right knee were obtained. COMPARISON: None. FINDINGS: Bone alignment is normal. No fracture. There is mild osteoarthritis of medial and lateral c ompartments characterized by tiny osteophytes. No joint space narrowing. No knee joint effusion. IMPRESSION: 1. Mild right knee osteoarthritis. Reviewed, dictated and finalized at location E.
[2024-01-14 00:20] VITALS: BP 148/91; PULSE 88; RESP 15; TEMP 36.5; O2SAT 98
--- NOTE | 2024-01-14 02:29 | ED.GENADULT ---
HPI - General Adult General Chief complaint: Extremity Injury, Lower Stated complaint: R leg pain/injury Time Seen by Provider: 01/14/24 01:53 History of Present Illness HPI narrative: patient 33-year-old gentleman who presents emergency department with chief complaint of right leg pain. Patient reports he was laying on the floor getting up and heard 2 pops in his posterior aspect of his right thigh. Patient reports afterwards he feels as though his leg is weak even though he is able to lift his leg up off of the stretcher. The patient states that it is painful behind the thigh patient denies bruising denies being on blood thinners denies trauma Related Data Allergies Allergy/AdvReac Type Severity Reaction Status Date / Time Penicillins Allergy Intermediate Unknown Verified 01/14/24 01:07 Review of Systems Review of Systems: A 10 system review of systems was completed on the patient and is negative except for what is stated in the HPI. Nursing and ancillary documentation was reviewed. PMFSH Past Medical History Medical History Depression Social History Social History Substance use type: does not use Gender identity (if verbalized by the patient): Male Exam Narrative: GENERAL: Well-appearing, well-nourished, and in no acute distress. HEAD: Normocephalic, atraumatic. EYES: PERRLA and EOMI. ENT: Nares clear, no rhinorrhea or epistaxis. Mucous membranes moist. NECK: Supple. CHEST: Clear to auscultation. No respiratory distress. HEART: Regular rate and rhythm. No murmur heard. Normal peripheral pulses. ABDOMEN: Soft, nontender, nondistended, normal active bowel sounds. EXTREMITIES: Normal range of motion patient has tenderness to palpation of the posterior aspect of the right thigh. No edema. SKIN: Warm, dry, no rash. NEURO: No focal deficits. Alert and oriented x3. PSYCH: Normal mood and affect. Course Vital Signs Vital signs: Vital Signs Temperature 36.5 C 01/14/24 00:20 Pulse Rate 88 01/14/24 00:20 Respiratory Rate 15 01/14/24 00:20 Blood Pressure 148/91 H 01/14/24 00:20 Pulse Oximetry 98 01/14/24 00:20 Oxygen Delivery Room Air 01/14/24 00:20 Temperature 36.5 C 01/14/24 00:20 Pulse Rate 88 01/14/24 00:20 Respiratory Rate 15 01/14/24 00:20 Blood Pressure 148/91 H 01/14/24 00:20 Pulse Oximetry 98 01/14/24 00:20 Oxygen Delivery Room Air 01/14/24 00:20 Medical Decision Making MDM Narrative Medical decision making narrative: differential diagnosis includes muscle strain, hamstring injury, fracture, plain film x-rays of the right knee showed no evidence of fracture patient should rest elevate and ice the extremity. The patient follow-up with primary care provider if he continues to have symptoms may need further imaging Vital Signs Vital Signs: Vital Signs Temperature 36.5 C 01/14/24 00:20 Pulse Rate 88 01/14/24 00:20 Respiratory Rate 15 01/14/24 00:20 Blood Pressure 148/91 H 01/14/24 00:20 Pulse Oximetry 98 01/14/24 00:20 Oxygen Delivery Room Air 01/14/24 00:20 Temperature 36.5 C 01/14/24 00:20 Pulse Rate 88 01/14/24 00:20 Respiratory Rate 15 01/14/24 00:20 Blood Pressure 148/91 H 01/14/24 00:20 Pulse Oximetry 98 01/14/24 00:20 Oxygen Delivery Room Air 01/14/24 00:20 Discharge Plan Discharge Clinical Impression: Right hamstring muscle strain Patient Disposition: Home, Self-Care Condition: Stable Instructions: Antibiotic Form, Hamstring Injury (ED) Additional Instructions: please rest elevate ice the extremity. Please follow-up with your primary care provider if he continues have symptoms may need further imaging that could include an MRI Follow-up/Referrals: Daniel Arreola MD [Physician] - UNKNOWN,DOCTOR [Primary Care Provider] - Time of
[2024-01-14 03:12] VITALS: PULSE 88; RESP 16; O2SAT 98
== END 2024-01-14 03:12 | disposition home or self-care (01) ==
PROVIDERS: Emergency Provider Emergency Medicine
DX: S76.311A Strain of muscle, fascia and tendon of the posterior muscle group at thigh level, right thigh, initial encounter (principal); F32.A Depression, unspecified; X50.0XXA Overexertion from strenuous movement or load, initial encounter
CPT/HCPCS: 73562; 99283

== ENCOUNTER 2024-02-09 11:12 | Emergency (ER) | payer BC, SELFPAY ==
[2024-02-09 11:28] VITALS: BP 139/100; PULSE 76; RESP 18; TEMP 36.3; O2SAT 96
--- NOTE | 2024-02-09 13:49 | ED.ANXIETY ---
HPI - Anxiety General Chief Complaint: Anxiety Stated Complaint: anxiety Time Seen by Provider: 02/09/24 12:13 Source: patient History of Present Illness HPI narrative: History of anxiety, depression, a lot of fun anxiety and stress lately. Patient was seen by psychiatrist lately and started on hydroxyzine 1 week ago without any improvement. Complaining of intermittent shortness of breath, lightheadedness, headache, numbness and tingling. Patient lives alone, denies suicidal or homicidal ideation Related Data Allergies Allergy/AdvReac Type Severity Reaction Status Date / Time Penicillins Allergy Intermediate Unknown Verified 01/14/24 01:07 Review of Systems Review of Systems: All systems reviewed & are unremarkable except as noted in HPI and below PMFSH Past Medical History Medical History Depression Social History Social History Substance use type: does not use Gender identity (if verbalized by the patient): Male Exam Narrative: General appearance: Well-developed, well-nourished Skin: Normal color Head: Normocephalic, nontraumatic Eyes: Clear conjunctiva ENT: Oropharynx normal, ears normal, nose normal Neck: Supple, nontender Chest and respiratory: Airway patent, no respiratory distress, no accessory muscle use Heart: Regular rate/rhythm Abdomen: Soft, nontender, no organomegaly, quiet bowel sounds Vascular: Normal peripheral pulses, normal capillary refill. Musculoskeletal: Normal range of motion, nontender back Neurologic: Alert and oriented ?3, [employer] is normal as tested, no gross motor deficit Course Vital Signs Vital signs: Vital Signs Temperature 36.3 C L 02/09/24 11:28 Pulse Rate 76 02/09/24 11:28 Respiratory Rate 18 02/09/24 11:28 Blood Pressure 139/100 H 02/09/24 11:28 Pulse Oximetry 96 02/09/24 11:28 Oxygen Delivery Room Air 02/09/24 11:28 Temperature 36.3 C L 02/09/24 11:28 Pulse Rate 76 02/09/24 11:28 Respiratory Rate 18 02/09/24 11:28 Blood Pressure 139/100 H 02/09/24 11:28 Pulse Oximetry 96 02/09/24 11:28 Oxygen Delivery Room Air 02/09/24 11:28 MDM - Anxiety MDM Narrative Medical decision making narrative: Anxiety, depression are my concern. Laboratory studies or imaging are not required at this time. Patient need to follow up with his psychiatrist as soon as possible Critical Care Time Critical Care Time Critical Care Time: No Discharge Plan Discharge Clinical Impression: Depression, Insomnia Patient Disposition: Home, Self-Care Condition: Stable Instructions: Anxiety (ED) Additional Instructions: Return if symptoms are worsening , call your family physician for appointment, take Tylenol as as needed for aches and pain, continue home medications. Call your psychiatrist for further evaluation Follow-up/Referrals: UNKNOWN,DOCTOR [Primary Care Provider] -
[2024-02-09 14:16] VITALS: BP 140/89; PULSE 69; RESP 20; O2SAT 100
== END 2024-02-09 14:17 | disposition home or self-care (01) ==
PROVIDERS: Emergency Provider Emergency Medicine
DX: F32.A Depression, unspecified (principal); G47.00 Insomnia, unspecified
CPT/HCPCS: 99281